=== PATIENT | male | born 1970 | race Caucasian/White ===

== ENCOUNTER 2017-10-22 16:03 | Emergency (ER) | payer MEDICARE, MEDICAID ==
[~2017-10-22] VITALS: Ht 182.9 cm; Wt 71.0 kg
[2017-10-22 16:06] VITALS: BP 122/63
[2017-10-22] MEDS ORDERED: SODIUM CHLORIDE FLUSH 10ML SYR IVF ONE (16:30)
[2017-10-22] MEDS ORDERED: PLEASE ENTER HEIGHT AND WEIGHT MC SCH (16:30)
[2017-10-22] MEDS ORDERED: AZITHROMYCIN 500 MG TABLET PO ONE (16:30)
[2017-10-22] MEDS ORDERED: SODIUM CHLORIDE 0.9% 1,000ML IVBOLUS ONE (16:30)
[2017-10-22 16:33] LABS: HEMATOCRIT 44.9 % (39.2-51.8); WHITE BLOOD COUNT 9.4 x10^3/uL (3.4-10)
[2017-10-22] MEDS ORDERED: AZITHROMYCIN 500 MG TABLET ONE (16:38)
[2017-10-22] MEDS ORDERED: ALBUTEROL/IPRATROPIUM 2.5MG/0.5MG, 3 ML ONE (16:39)
[2017-10-22 16:43] LABS: BLOOD UREA NITROGEN 9 mg/dL (7-18)
== END 2017-10-22 18:30 | disposition home or self-care (01) ==
LOC: ED 18:20
DX: J44.1 Chronic obstructive pulmonary disease with (acute) exacerbation (principal); J20.9 Acute bronchitis, unspecified; F20.9 Schizophrenia, unspecified
CPT/HCPCS: 36415; 71010; 80048; 82040; 85025; 93005; 94640; 96360; 99285; J7030

== ENCOUNTER 2019-03-31 20:02 | Emergency (ER) | payer MEDICARE, MEDICAID ==
[~2019-03-31] VITALS: Ht 188 cm; Wt 64.0 kg
[2019-03-31] MEDS ORDERED: BUPR200T2 PO (20:13)
[2019-03-31] MEDS ORDERED: LORazepam 1MG TABLET ONE (20:20)
[2019-03-31] MEDS ORDERED: LORazepam 1MG TABLET PO ONE (20:30)
--- NOTE | 2019-03-31 20:37 | NUR ---
PT MEDICATED PER MAR.
--- NOTE | 2019-03-31 21:14 | NUR ---
PT D/C WITH D/C SUMMARY AND TAXI VOUCHER. PT DENIES ANY OTHER NEEDS PERTAINING TO THIS VISIT. PT VSS UPON PT D/C. PT AMBULATES TO REGISTRATION DESK WITH STEADY GAIT FOR D/C HOME.
[2019-03-31 21:15] VITALS: BP 131/81
== END 2019-03-31 21:18 | disposition home or self-care (01) ==
LOC: ED 21:08
DX: F41.1 Generalized anxiety disorder (principal); F20.9 Schizophrenia, unspecified; F32.9 Major depressive disorder, single episode, unspecified; F17.210 Nicotine dependence, cigarettes, uncomplicated; F15.20 Other stimulant dependence, uncomplicated; Z72.9 Problem related to lifestyle, unspecified; Z91.14 Patient's other noncompliance with medication regimen; Z75.9 Unspecified problem related to medical facilities and other health care
CPT/HCPCS: 99284

== ENCOUNTER 2019-04-02 15:13 | Emergency (ER) | payer MEDICARE, MEDICAID ==
[~2019-04-02] VITALS: Ht 185.4 cm; Wt 75.0 kg
[~2019-04-02 15:13] MED LIST: BUPR200T2 PO
[2019-04-02 15:29] VITALS: BP 112/80
[2019-04-02] MEDS ORDERED: LORazepam 1MG TABLET ONE (15:47)
[2019-04-02] MEDS ORDERED: LORazepam 1MG TABLET PO ONE (16:00)
--- NOTE | 2019-04-02 16:15 | NUR ---
pt upright on gurney awake & calmer after anxiolytic, responds approp to staff, NAD, comfort measures provided, call light within reach.
--- NOTE | 2019-04-02 16:34 | NUR ---
Patient given discharge instructions and Rx, they have confirmed that they understand the instructions. Patient ambulatory with steady gait.
== END 2019-04-02 16:36 | disposition home or self-care (01) ==
LOC: ED 16:09
DX: F41.1 Generalized anxiety disorder (principal); F15.10 Other stimulant abuse, uncomplicated; Z72.9 Problem related to lifestyle, unspecified; F20.9 Schizophrenia, unspecified; F17.200 Nicotine dependence, unspecified, uncomplicated
CPT/HCPCS: 99284

== ENCOUNTER 2019-12-22 21:03 | Observation (INO) | payer MEDICARE, MEDICAID ==
[~2019-12-22] VITALS: Ht 182.9 cm; Wt 76.5 kg
--- NOTE | 2019-12-22 21:28 | NUR ---
PT CAME IN CO OF FAST HEART BEAT. DENIES CHEST PAIN OR CARDIAC HISTORY. PT HR IS 58 ON MONITOR. 100% ON ROOM AIR
[2019-12-22] MEDS ORDERED: RISPERDAL (21:30)
[2019-12-22 21:52] LABS: BASOPHILS # (AUTO) 0.04 x10^3/uL (0-0.1); BASOPHILS % (AUTO) 1 % (0-1); EOSINOPHILS # (AUTO) 0.27 x10^3/uL (0-0.4); EOSINOPHILS % (AUTO) 4 % (1-7); LYMPHOCYTES # (AUTO) 2.56 x10^3/uL (1-3.4); LYMPHOCYTES % (AUTO) 39 % (22-44); MD NO; MEAN CORPUSCULAR HEMOGLOBIN 30.9 pg (27.5-34.5); MEAN CORPUSCULAR HGB CONC 33.5 g/dL (33.2-36.2); MEAN CORPUSCULAR VOLUME 92.2 fL (81-97); MEAN PLATELET VOLUME 7.4 fL (7.4-10.4); MONOCYTES # (AUTO) 0.49 x10^3/uL (0.2-0.8); MONOCYTES % (AUTO) 8 % (2-9); NEUTROPHILS # (AUTO) 3.17 x10^3/uL (1.8-6.8); NEUTROPHILS % (AUTO) 49 % (42-75); PLATELET COUNT 243 x10^3/uL (130-400); RED BLOOD COUNT 4.65 x10^6/uL (4.38-5.82); RED CELL DISTRIBUTION WIDTH 14.5 % (9.4-14.8)
[2019-12-22 22:03] LABS: ALANINE AMINOTRANSFERASE 23 U/L (12-78); ALBUMIN 3.4 g/dL (3.4-5.0); ANION GAP 4 mmol/L (5-15); CALCIUM 8.3 mg/dL (8.5-10.1); CHLORIDE 107 mmol/L (98-107); CREATININE 0.88 mg/dL (0.7-1.3)
--- NOTE | 2019-12-22 22:04 | NUR ---
REPORT GIVEN TO EDVIN CHEN
[2019-12-22 22:07] LABS: ALKALINE PHOSPHATASE 83 U/L (45-117); BILIRUBIN,TOTAL 0.6 mg/dL (0.2-1.0); TOTAL PROTEIN 6.2 g/dL (6.4-8.2); TROPONIN I < 0.015 ng/mL (0.000-0.045)
--- NOTE | 2019-12-22 22:22 | NUR ---
PT RESTING ON CART IN NAD. REMAINS IN 60'S ON MONITOR. WILL CTM.
[2019-12-22] MEDS ORDERED: POTASSIUM CHLORIDE 20 MEQ TAB.ER.PRT PO ONE (22:30)
[2019-12-22] MEDS ORDERED: POTASSIUM CHLORIDE 40 MEQ in SODIUM CHLORIDE 0.9% 500 ML IV ONE (22:30)
[2019-12-22] MEDS ORDERED: POTASSIUM CHLORIDE 20 MEQ TAB.ER.PRT ONE (22:33)
--- NOTE | 2019-12-23 00:19 | NUR ---
PT AMBULATORY TO RESTROOM C STEADY GAIT. REPORT CALLED. READY FOR TRANSPORT.
[2019-12-23 00:48] VITALS: BP 125/81
[2019-12-23] MEDS ORDERED: DOCUSATE 100 MG CAPSULE PO PRN (01:30)
[2019-12-23] MEDS ORDERED: ENOXAPARIN 40 MG/0.4 ML SQ SCH (01:30)
[2019-12-23] MEDS ORDERED: ONDANSETRON ODT 4 MG PO PRN (01:30)
[2019-12-23] MEDS ORDERED: BISACODYL 10 MG SUPP PR PRN (01:30)
[2019-12-23] MEDS ORDERED: NICOTINE 14MG/24 HR PATCH.TD24 TD SCH (01:30)
[2019-12-23] MEDS ORDERED: ALBU18HF INH (01:35)
[2019-12-23] MEDS ORDERED: PROP10TA16 PO (01:35)
[2019-12-23] MEDS: ACETAMINOPHEN 325 MG TABLET PO PRN ×2 (01:47→12:51)
[2019-12-23] MEDS: POTASSIUM CHLORIDE 20 MEQ in LACTATED RINGERS 1,000 ML IV SCH ×2 (03:09→15:16)
[2019-12-23] MEDS ORDERED: ALBUTEROL SULFATE 2.5 MG/3 ML NPPB PRN (03:30)
[2019-12-23 05:37] LABS: BASOPHILS # (AUTO) 0.03 x10^3/uL (0-0.1); BASOPHILS % (AUTO) 1 % (0-1); EOSINOPHILS # (AUTO) 0.34 x10^3/uL (0-0.4); EOSINOPHILS % (AUTO) 5 % (1-7); LYMPHOCYTES # (AUTO) 3.11 x10^3/uL (1-3.4); LYMPHOCYTES % (AUTO) 45 % (22-44); MD NO; MEAN CORPUSCULAR HEMOGLOBIN 31.9 pg (27.5-34.5); MEAN CORPUSCULAR HGB CONC 34.2 g/dL (33.2-36.2); MEAN CORPUSCULAR VOLUME 93.1 fL (81-97); MEAN PLATELET VOLUME 7.7 fL (7.4-10.4); MONOCYTES # (AUTO) 0.64 x10^3/uL (0.2-0.8); MONOCYTES % (AUTO) 9 % (2-9); NEUTROPHILS # (AUTO) 2.73 x10^3/uL (1.8-6.8); NEUTROPHILS % (AUTO) 40 % (42-75); PLATELET COUNT 235 x10^3/uL (130-400); RED CELL DISTRIBUTION WIDTH 14.5 % (9.4-14.8)
[2019-12-23 05:46] LABS: CALCIUM 8.2 mg/dL (8.5-10.1); CHLORIDE 112 mmol/L (98-107)
[2019-12-23 06:00] LABS: ALANINE AMINOTRANSFERASE 18 U/L (12-78); ALBUMIN 2.9 g/dL (3.4-5.0); ALKALINE PHOSPHATASE 75 U/L (45-117); ANION GAP 3 mmol/L (5-15); BILIRUBIN,TOTAL 0.6 mg/dL (0.2-1.0); CREATININE 0.84 mg/dL (0.7-1.3); TOTAL PROTEIN 5.5 g/dL (6.4-8.2)
[2019-12-23] MEDS ORDERED: OMEPRAZOLE 20 MG CAPSULE.DR PO SCH (06:00)
[2019-12-23] MEDS ORDERED: BUPROPION SR 100 MG TABLET PO SCH (09:00)
[2019-12-23 09:08] VITALS: BP 116/65
[2019-12-23] MEDS ORDERED: BUPR-173 PO (09:50)
[2019-12-23] MEDS ORDERED: FLUT9.9S NS (09:50)
[2019-12-23] MEDS ORDERED: MULT-658 PO (09:50)
[2019-12-23] MEDS ORDERED: TIOT18CA INH (09:50)
[2019-12-23] MEDS ORDERED: PANT40TA5 PO (09:50)
[2019-12-23] MEDS ORDERED: RISP2TAB35 PO (09:50)
[2019-12-23] MEDS ORDERED: POTASSIUM CHLORIDE 20 MEQ TAB.ER.PRT PO ONE (11:00)
[2019-12-23 13:14] VITALS: BP 116/75
[2019-12-23] MEDS ORDERED: POTA20TA14 PO (16:31)
== END 2019-12-23 17:54 | disposition home or self-care (01) ==
LOC: ED 23:11 → EDIP 23:52 → INTOOBSV 23:52 → 5SO 12-23 00:29
PROVIDERS: ADMIT Family Medicine; ATTEND Family Medicine
DX: E87.6 Hypokalemia (principal); F17.200 Nicotine dependence, unspecified, uncomplicated; K21.9 Gastro-esophageal reflux disease without esophagitis; J44.9 Chronic obstructive pulmonary disease, unspecified; Z79.899 Other long term (current) drug therapy
CPT/HCPCS: 36415; 71045; 80053; 83735; 83880; 84132; 84443; 84484; 85025; 93005; 96365; 96366; 97162; 97165; 99285; G0378; J3480; J7040; J7120